=== PATIENT | male | born 1985 | race Caucasian/White ===

== ENCOUNTER 2020-05-15 21:39 | Inpatient (IN) | payer OTHER ==
[2020-05-15 22:00] LABS: Basophils # (A) 0.1 k/uL (0-0.2); Basophils % (A) 1 %; Eosinophils # (A) 0.2 k/uL (0-0.7); Eosinophils % (A) 2 %; HGB 13.5 gm/dL (13.0-17.5); Lymphocytes # (A) 3.4 k/uL (1.0-4.8); Lymphocytes % (A) 41 %; MCHC 32.2 g/dL (31.0-37.0); MCV 93.1 fL (80.0-100.0); Mean Platelet Volume 9.8; Monocytes # (A) 0.4 k/uL (0-1.0); Monocytes % (A) 5 %; Neutrophils # (A) 3.9 k/uL (1.3-7.7); Neutrophils % (A) 48 %; Platelet Count 167 k/uL (150-450); RBC 4.51 m/uL (4.30-5.90); RDW 12.6 % (11.5-15.5); WBC 8.2 k/uL (3.8-10.6)
--- NOTE | 2020-05-15 22:08 | ED ---
General Adult HPI - General Chief complaint: Seizure Stated complaint: Seizure Time Seen by Provider: 05/15/20 21:45 Source: patient, EMS Mode of arrival: EMS Limitations: no limitations - History of Present Illness Initial comments: Dictation was produced using Embedster dictation software. please excuse any grammatical, word or spelling errors. This patient was cared for during a federal and state declared state of emergency secondary to Covid 19 Chief Complaint: 34-year-old male presents after syncope. History of Present Illness: 34-year-old male is brought in by EMS for syncopal versus seizure. Patient states he was washing the dishes when all of a sudden the Nexium remembers was laying down the floor. He is brought here by EMS. Patient does not have a history of syncope. He denies any medical problems. He does smoke tobacco. Patient takes Kratom powder to help him with his cardio and to help with his depression. Patient's been taking this substance for approximately 8 months. He has not increased his intake recently. The ROS documented in this emergency department record has been reviewed and confirmed by me. Those systems with pertinent positive or negative responses have been documented in the HPI. All other systems are other negative and/or noncontributory. PHYSICAL EXAM: General Impression: Alert and oriented x3, not in acute distress HEENT: Normocephalic atraumatic, extra-ocular movements intact, pupils equal and reactive to light bilaterally, mucous membranes moist, no lateral tongue avuls ions Cardiovascular: Heart regular rate and rhythm Chest: Able to complete full sentences, no retractions, no tachypnea, mild regurgitation murmur Abdomen: abdomen soft, non-tender, non-distended, no organomegaly Musculoskeletal: Pulses present and equal in all extremities, no peripheral edema Motor: no focal deficits noted Neurological: CN II-XII grossly intact, no focal motor or sensory deficits noted Skin: Intact with no visualized rashes Psych: Normal affect and mood ED course: 34-year-old male presents after syncope. Signs upon arrival are within acceptable limits. EKG did show a QRS widening in a 34-year-old male with no medical problems. Case is discussed with Tahmina at [email or web address] [facility] given patient's abnormal EKG. She states that there are case reports of myocardial conduction effects from chronic Kratom use. Poison control has no specific recommendations however they do suggests perhaps trying sodium bicarbonate to see if it affects the QRS interval. Boyd arrives at bedside. She states she witnessed the whole event. He was found to be convulsing with extensor posturing and foaming at the mouth for approximately 2 minutes. 2 minutes he stopped. For following 2 minutes patient was sonorous. That he immediately woke up. Repeat EKG was performed after multiple amps of bicarbonate. His QRS narrowed to 136 however QTC is now 508. There is some concern that perhaps patient's syncopal episode was secondary to cardiac arrhythmia however clinically based on girlfriend's description of the event seems like seizure. Given that there is concern of cardiac dysrhythmia discussed patient case with the sap senior developer Dr. Trejo, recommend that patient is not ICU player at this time and to have him admitted to telemetry on non-titrated sodium bicarb infusion. Case is discussed with Stefanie Chi who is accepting patients care on behalf of [facility]. Case was discu ssed with Dr. Key who is aware of patient. He has no recommendations. Patient is agreeable with admission. EKG interpretation: Ventricular rate 83, normal sinus rhythm, CO interval 136, QS 140, QTc 484. No CO prolongation, no QTC prolongation, no ST or T-wave changes noted. There is unusual QRS widening and otherwise healthy male with no history of cardiac problems - Related Data Allergies Allergy/AdvReac Type Severity Reaction Status Date / Time No Known Allergies Allergy Verified 05/15/20 22:24 Review of Systems ROS Statement: Those systems with pertinent positive or pertinent negative responses have been documented in the HPI. ROS Other: All systems not noted in ROS Statement are negative. Past Medical History Past Medical History: No Reported History History of Any Multi-Drug Resistant Organisms: None Reported Past Surgical History: No Surgical Hx Reported Past Psychological History: No Psychological Hx Reported Smoking Status: Current every day smoker Past Alcohol Use History: Occasional Past Drug Use History: None Reported General Exam Limitations: no limitations Course Vital Signs 05/15/20 05/15/20 21:42 22:34 Temperature 98.1 F Pulse Rate 80 72 Respiratory 18 18 Rate Blood Pressure 155/83 132/80 O2 Sat by Pulse 99 98 Oximetry Medical Decision Making - Lab Data Result diagrams: 05/15/20 21:43 05/15/20 21:43 Lab Results 05/15/20 05/15/20 05/15/20 Range/Units 21:43 21:43 22:24 WBC 8.2 (3.8-10.6) k/uL RBC 4.51 (4.30-5.90) m/uL Hgb 13.5 (13.0-17.5) gm/dL Hct 42.0 (39.0-53.0) % MCV 93.1 (80.0-100.0) fL MCH 30.0 (25.0-35.0) pg MCHC 32.2 (31.0-37.0) g/dL RDW 12.6 (11.5-15.5) % Plt Count 167 (150-450) k/uL Neutrophils % 48 % Lymphocytes % 41 % Monocytes % 5 % Eosinophils % 2 % Basophils % 1 % Neutrophils # 3.9 (1.3-7.7) k/uL Lymphocytes # 3.4 (1.0-4.8) k/uL Monocytes # 0.4 (0-1.0) k/uL Eosinophils # 0.2 (0-0.7) k/uL Basophils # 0.1 (0-0.2) k/uL Sodium 138 (137-145) mmol/L Potassium 3.6 (3.5-5.1) mmol/L Chloride 100 (98-107) mmol/L Carbon Dioxide 27 (22-30) mmol/L Anion Gap 11 mmol/L BUN 19 (9-20) mg/dL Creatinine 0.81 (0.66-1.25) mg/dL Est GFR (CKD-EPI)AfAm >90 (>60 ml/min/1.73 sqM) Est GFR (CKD-EPI)NonAf >90 (>60 ml/min/1.73 sqM) Glucose 114 H (74-99) mg/dL Calcium 8.2 L (8.4-10.2) mg/dL Total Bilirubin 0.3 (0.2-1.3) mg/dL AST 29 (17-59) U/L ALT 16 (4-49) U/L Alkaline Phosphatase 57 (38-126) U/L Total Protein 6.5 (6.3-8.2) g/dL Albumin 4.2 (3.5-5.0) g/dL Urine Color Yellow Urine Appearance Clear (Clear) Urine pH 5.5 (5.0-8.0) Ur Specific [place] 1.025 (1.001-1.035) Urine Protein 1+ H (Negative) Urine Glucose (UA) Negative (Negative) Urine Ketones Negative (Negative) Urine Blood Negative (Negative) Urine Nitrite Negative (Negative) Urine Bilirubin Negative (Negative) Urine Urobilinogen <2.0 (<2.0) mg/dL Ur Leukocyte Esterase Trace H (Negative) Urine RBC 1 (0-5) /hpf Urine WBC <1 (0-5) /hpf Hyaline Casts 11 H (0-2) /lpf Urine Mucus Rare H (None) /hpf Urine Sperm Occasional H (None) /hpf Urine Opiates Screen (NotDetected) Ur Oxycodone Screen (NotDetected) Urine Methadone Screen (NotDetected) Ur Propoxyphene Screen (NotDetected) Ur Barbiturates Screen (NotDetected) U Tricyclic Antidepress (NotDetected) Ur Phencyclidine Scrn (NotDetected) Ur Amphetamines Screen (NotDetected) U Methamphetamines Scrn (NotDetected) U Benzodiazepines Scrn (NotDetected) Urine Cocaine Screen (NotDetected) U Marijuana (THC) Screen (NotDetected) Serum Alcohol <10 mg/dL 05/15/20 Range/Units 22:27 WBC (3.8-10.6) k/uL RBC (4.30-5.90) m/uL Hgb (13.0-17.5) gm/dL Hct (39.0-53.0) % MCV (80.0-100.0) fL MCH (25.0-35.0) pg MCHC (31.0-37.0) g/dL RDW (11.5-15.5) % Plt Count (150-450) k/uL Neutrophils % % Lymphocytes % % Monocytes % % Eosinophils % % Basophils % % Neutrophils # (1.3-7.7) k/uL Lymphocytes # (1.0-4.8) k/uL Monocytes # (0-1.0) k/uL Eosinophils # (0-0.7) k/uL Basophils # (0-0.2) k/uL Sodium (137-145) mmol/L Potassium (3.5-5.1) mmol/L Chloride (98-107) mmol/L Carbon Dioxide (22-30) mmol/L Anion Gap mmol/L BUN (9-20) mg/dL Creatinine (0.66-1.25) mg/dL Est GFR (CKD-EPI)AfAm (>60 ml/min/1.73 sqM) Est GFR (CKD-EPI)NonAf (>60 ml/min/1.73 sqM) Glucose (74-99) mg/dL Calcium (8.4-10.2) mg/dL Total Bilirubin (0.2-1.3) mg/dL AST (17-59) U/L ALT (4-49) U/L Alkaline Phosphatase (38-126) U/L Total Protein (6.3-8.2) g/dL Albumin (3.5-5.0) g/dL Urine Color Urine Appearance (Clear) Urine pH (5.0-8.0) Ur Specific [place] (1.001-1.035) Urine Protein (Negative) Urine Glucose (UA) (Negative) Urine Ketones (Negative) Urine Blood (Negative) Urine Nitrite (Negative) Urine Bilirubin (Negative) Urine Urobilinogen (<2.0) mg/dL Ur Leukocyte Esterase (Negative) Urine RBC (0-5) /hpf Urine WBC (0-5) /hpf Hyaline Casts (0-2) /lpf Urine Mucus (None) /hpf Urine Sperm (None) /hpf Urine Opiates Screen Not Detected (NotDetected) Ur Oxycodone Screen Not Detected (NotDetected) Urine Methadone Screen Not Detected (NotDetected) Ur Propoxyphene Screen Not Detected (NotDetected) Ur Barbiturates Screen Not Detected (NotDetected) U Tricyclic Antidepress Not Detected (NotDetected) Ur Phencyclidine Scrn Not Detected (NotDetected) Ur Amphetamines Screen Not Detected (NotDetected) U Methamphetamines Scrn Not Detected (NotDetected) U Benzodiazepines Scrn Not Detected (NotDetected) Urine Cocaine Screen Not Detected (NotDetected) U Marijuana (THC) Screen Not Detected (NotDetected) Serum Alcohol mg/dL Critical Care Time Critical Care Time: Yes Total Critical Care Time: 33 Disposition Clinical Impression: Syncope Disposition: ADMITTED IP TO THIS [facility] Condition: Fair Referrals: None,Stated [Primary Care Provider] - 1-2 days Decision Time: 23:02
[2020-05-15 22:23] LABS: ALT 16 U/L (4-49); AST 29 U/L (17-59); African American GFR (CKD) >90 (>60 ml/min/1.73 sqM); Albumin 4.2 g/dL (3.5-5.0); Alcohol <10 mg/dL; Alkaline Phosphatase 57 U/L (38-126); Anion Gap 11 mmol/L; Blood Urea Nitrogen 19 mg/dL (9-20); Calcium 8.2 mg/dL (8.4-10.2); Carbon Dioxide 27 mmol/L (22-30); Chloride 100 mmol/L (98-107); Glucose 114 mg/dL (74-99); Non-African American GFR(CKD) >90 (>60 ml/min/1.73 sqM); Potassium 3.6 mmol/L (3.5-5.1); Sodium 138 mmol/L (137-145); Total Bilirubin 0.3 mg/dL (0.2-1.3); Total Protein 6.5 g/dL (6.3-8.2)
[2020-05-15] MEDS ORDERED: SODIUM BICARB 8.4% 50 ML SYR (1 MEQ/ML) IV STA (22:23)
[2020-05-15] MEDS ORDERED: CALCIUM GLUCONATE 1 GM in SODIUM CHLORIDE 0.9% 100 ML IVPB ONE (22:30)
[2020-05-15 22:36] LABS: Appearance,Urine Clear (Clear); Bilirubin,Urine Negative (Negative); Blood,Urine Negative (Negative); Color,Urine Yellow; Glucose,Urine (UA) Negative (Negative); Hyaline Casts,Urine 11 /lpf (0-2); Ketones,Urine Negative (Negative); Leukocyte Esterase,Urine Trace (Negative); Mucus,Urine Rare /hpf; Nitrite,Urine Negative (Negative); PH, Urine 5.5 (5.0-8.0); Protein,Urine 1+ (Negative); RBC,Urine 1 /hpf (0-5); Specific Gravity,Urine 1.025 (1.001-1.035); Sperm,Urine Occasional /hpf; Urobilinogen,Urine <2.0 mg/dL (<2.0); WBC,Urine <1 /hpf (0-5)
[2020-05-15 22:53] LABS: Amphetamine Screen,Urine Not Detected (NotDetected); Barbiturate Screen,Urine Not Detected (NotDetected); Benzodiazepines Screen,Urine Not Detected (NotDetected); Cocaine Screen,Urine Not Detected (NotDetected); Methadone Screen, Urine Not Detected (NotDetected); Opiate Screen,Urine Not Detected (NotDetected); Oxycodone Screen, Urine Not Detected (NotDetected); Phencyclidine Screen,Urine Not Detected (NotDetected); Tricyclic Antidepressant,Urine Not Detected (NotDetected); Urn Cannabinoid Scrn Not Detected (NotDetected)
[2020-05-15] MEDS ORDERED: NALOXONE 0.4 MG/ML 1 ML VIAL IV PRN (22:55)
[2020-05-15] MEDS ORDERED: SODIUM CHLORIDE 0.9% 1,000 ML IV SCH (23:00)
[2020-05-15] MEDS ORDERED: LORazepam 2 MG/ML INJ IV PRN (23:02)
[2020-05-15] MEDS: DEXTROSE 5% IN WATER 1,000 ML with SODIUM BICARB (1 MEQ/ML) 150 ML IV SCH (23:25)
[2020-05-16] MEDS: DEXTROSE 5% IN WATER 1,000 ML with SODIUM BICARB (1 MEQ/ML) 150 ML IV SCH (05:17)
[2020-05-16 08:38] VITALS: RESP 18
--- NOTE | 2020-05-16 09:30 | P.CRDCN ---
History of Present Illness Consult date: 05/16/20 History of present illness: CHIEF COMPLAINT: Syncope versus seizure HISTORY OF PRESENT ILLNESS: 34-year-old male with a history of nicotine dependence who presented to the emergency room secondary to possible seizure. Patient does not follow up outpatient with a surgical instrument mechanic. Patient states he was feeling well yesterday except for having a little bit of shakiness. He ate dinner with his family and afterwards started washing dishes. He states he was feeling fine and then all of a sudden woke up on the floor. The patient states his girlfriend said he was shaking and having jerking motions similar to a seizure. Patient denies having a seizure history. He denies chest pain or pressure. Denies shortness of breath. Denies dizziness or lightheadedness. Patient reports using Kratom powder for the last 8 months and she states it is supposed to be beneficial for cardiac health and depression. Poison control was contacted while the patient was in the emergency room and he was started on a bicarb drip. Patient denies any known medical conditions. He is a current smoker. He reports occasional alcohol use. He denies surgical history. Patient reports family history of heart disease on his fathers side and also diabetes. DIAGNOSTICS: EKG reveals sinus rhythm Laboratory data: WBC 8.2. Hemoglobin 13.5. Platelet count 167. Sodium 138. Potassium 3.6. BUN 19. Creatinine 0.81. Magnesium 1.6. Current home cardiac medications include: none REVIEW OF SYSTEMS: CONSTITUTIONAL: Denies fever or chills. HEENT: Denies blurred vision, vision changes, or eye pain. Denies hemoptysis CARDIOVASCULAR: Denies chest pain, orthopnea, PND or palpitations RESPIRATORY: No shortness of breath. GASTROINTESTINAL: Denies abdominal pain. Denies nausea or vomiting. HEMATOLOGIC: Denies bleeding disorders. GENITOURINARY: Denies any blood in urine. SKIN: Denies pruitis. Denies rash. PHYSICAL EXAM: VITAL SIGNS: Reviewed. GENERAL: Well-developed in no acute distress. HEENT: Head is normocephalic. Pupils are equal, round. Sclerae anicteric. Mucous membranes of the mouth are moist. Neck supple. No JVD or thyromegaly LUNGS: Respirations even and unlabored. Lungs essentially clear to auscultation bilaterally. HEART: Regular rate and rhythm. S1 and S2 heard. ABDOMEN: Soft. Nondistended. Nontender. EXTREMITIES: Normal range of motion. No clubbing or cyanosis. Peripheral pulses intact. No lower extremity edema NEUROLOGIC: Awake and alert. Oriented x 3. ASSESSMENT: Possible syncope versus seizure, rule out cardiac etiology PLAN: Continue telemetry monitoring to assess for any cardiac arrhythmias Obtain 2-D echo to assess cardiac structure and function Obtain troponin level Check orthostatic blood pressures Neurology following. Await recommendations Further recommendations pending patient's course Nurse practitioner note has been reviewed by physician. Signing provider agrees with the documented findings, assessment, and plan of care. Past Medical History Past Medical History: No Reported History History of Any Multi-Drug Resistant Organisms: None Reported Past Surgical History: No Surgical Hx Reported Past Psychological History: No Psychological Hx Reported Smoking Status: Current every day smoker Past Alcohol Use History: Occasional Past Drug Use History: None Reported - Past Family History Father Family Medical History: Diabetes Mellitus Additional Family Medical History / Comment(s): pt. states dad has heart issues Medications and Allergies Home Medications Medication Instructions Recorded Confirmed Type Kratom Supplement 1 cap PO DAILY 05/16/20 05/16/20 History Multivitamins, Thera [Multivitamin 1 tab PO DAILY 05/16/20 05/16/20 History (formulary)] [place]-3 Fatty Acids/Fish Oil [Fish 1 cap PO DAILY 05/16/20 05/16/20 History Oil 1,000 mg Softgel] Allergies Allergy/AdvReac Type Severity Reaction Status Date / Time No Known Allergies Allergy Verified 05/16/20 08:10 Physical Exam Vitals: Vital Signs Temp Pulse Pulse Resp BP BP Pulse Ox 05/16/20 03:37 98.6 F 62 16 121/69 98 05/16/20 00:00 98.8 F 66 18 126/73 97 05/15/20 22:34 72 18 132/80 98 05/15/20 21:42 98.1 F 80 18 155/83 99 Intake and Output 05/15/20 05/16/20 05/16/20 22:59 06:59 14:59 Intake Total 240 Balance 240 Intake: Oral 240 Other: # Voids 2 Weight 79.379 kg 77.3 kg Results 05/15/20 21:43 05/15/20 21:43 Cardiac Enzymes 05/15/20 Range/Units 21:43 AST 29 (17-59) U/L CBC 05/15/20 Range/Units 21:43 WBC 8.2 (3.8-10.6) k/uL RBC 4.51 (4.30-5.90) m/uL Hgb 13.5 (13.0-17.5) gm/dL Hct 42.0 (39.0-53.0) % Plt Count 167 (150-450) k/uL Comprehensive Metabolic Panel 05/15/20 Range/Units 21:43 Sodium 138 (137-145) mmol/L Potassium 3.6 (3.5-5.1) mmol/L Chloride 100 (98-107) mmol/L Carbon Dioxide 27 (22-30) mmol/L BUN 19 (9-20) mg/dL Creatinine 0.81 (0.66-1.25) mg/dL Glucose 114 H (74-99) mg/dL Calcium 8.2 L (8.4-10.2) mg/dL AST 29 (17-59) U/L ALT 16 (4-49) U/L Alkaline Phosphatase 57 (38-126) U/L Total Protein 6.5 (6.3-8.2) g/dL Albumin 4.2 (3.5-5.0) g/dL Current Medications Generic Name Dose Route Start Last Admin Trade Name Freq PRN Reason Stop Dose Admin Sodium Bicarbonate 150 ml/ 1,150 mls @ 150 mls/hr 05/15/20 23:00 05/16/20 05:17 Dextrose/Water IV 150 mls/hr .[id number] JOEY Administration Sodium Chloride 1,000 mls @ 20 mls/hr 05/15/20 23:00 05/16/20 00:23 Saline 0.9% IV Not Given .Q24H JOEY Lorazepam 2 mg 05/15/20 23:02 Ativan IV ONCE PRN Seizures Naloxone HCl 0.2 mg 05/15/20 22:55 Narcan IV Q2M PRN Opioid Reversal Intake and Output 05/15/20 05/16/20 05/16/20 22:59 06:59 14:59 Intake Total 240 Balance 240 Intake: Oral 240 Other: # Voids 2 Weight 79.379 kg 77.3 kg 05/15/20 21:43 05/15/20 21:43
--- NOTE | 2020-05-16 10:36 | CT ---
EXAMINATION TYPE: CT brain wo con DATE OF EXAM: 05/16/2020 COMPARISON: None HISTORY: 34-year-old male Seizure TECHNIQUE: Examination was done in axial plane without intravenous contrast. Coronal and sagittal r econstructions performed. CT DLP: 1095.4 mGycm Automated exposure control for dose reduction was used. FINDINGS: There is no evidence of acute intracranial hemorrhage, acute ischemic changes, mass, mass-effect, or extra-axial fluid collection. There is no effacement of cerebral sulci or basal subarachnoid cister ns. There is no hydrocephalus. There is no midline shift. Hines-white matter distinction is preserv ed. Dense cerumen in the bilateral external auditory canals. Scattered trace mucosal thickening ethmoid a ir cells. Orbits and globes are intact. IMPRESSION: No acute intracranial abnormality seen.
[2020-05-16 10:47] LABS: African American GFR (CKD) >90 (>60 ml/min/1.73 sqM); Anion Gap 4 mmol/L; Blood Urea Nitrogen 13 mg/dL (9-20); Calcium 8.2 mg/dL (8.4-10.2); Carbon Dioxide 32 mmol/L (22-30); Chloride 102 mmol/L (98-107); Glucose 108 mg/dL (74-99); Non-African American GFR(CKD) >90 (>60 ml/min/1.73 sqM); Potassium 3.6 mmol/L (3.5-5.1); Sodium 138 mmol/L (137-145)
[2020-05-16 10:58] LABS: VBG PH 7.48 (7.31-7.41)
--- NOTE | 2020-05-16 11:58 | ECHOF ---
Referral Reason:syncope, abnormal EKG MEASUREMENTS -------- HEIGHT: 188.0 cm WEIGHT: 77.1 kg BP: 121/69 RVIDd: 3.9 cm (< 3.3) IVSd: 1.3 cm (0.6 - 1.1) LVIDd: 4.9 cm (3.9 - 5.3) LVPWd: 1.4 cm (0.6 - 1.1) IVSs: 1.5 cm LVIDs: 3.1 cm LVPWs: 1.7 cm LAESV Index (A-L): 25.53 ml/m Ao Diam: 3.2 cm (2.0 - 3.7) AV Cusp: 2.6 cm (1.5 - 2.6) MV EXCURSION: 20.043 mm (> 18.000) MV EF SLOPE: 51 mm/s (70 - 150) EPSS: 0.2 cm MV E Shaheen: 1.04 m/s MV DecT: 259 ms MV A Shaheen: 0.85 m/s MV E/A Ratio: 1.23 RAP: 5.00 mmHg RVSP: 27.27 mmHg FINDINGS -------- This was a technically adequate study. The left ventricular size is normal. There is mild concentric left ventricular hypertrophy. Overa ll left ventricular systolic function is normal with, an EF between 55 - 60 %. The diastolic fillin g pattern is normal for the age of the patient 9.02. The right ventricle is mildly enlarged. Normal LA size by volume 22+/-6 ml/m2. The right atrial size is normal. Interatrial and interventricular septum intact. The aortic valve is trileaflet and appears structurally normal. There is no evidence of aortic regu rgitation. There is no evidence of aortic stenosis. No mitral regurgitation. Mild tricuspid regurgitation present. There is no evidence of pulmonary hypertension. The right v entricular systolic pressure, as measured by Doppler, is 27.27mmHg. Trace/mild (physiologic) pulmonic regurgitation. The aortic root size is normal. Normal inferior vena cava with normal inspiratory collapse consistent with estimated right atrial pre ssure of 5 mmHg. There is no pericardial effusion. CONCLUSIONS -------- 1. The left ventricular size is normal. 2. There is mild concentric left ventricular hypertrophy. 3. Overall left ventricular systolic function is normal with, an EF between 55 - 60 %. 4. The diastolic filling pattern is normal for the age of the patient 9.02 5. Mild tricuspid regurgitation present. 6. Trace/mild (physiologic) pulmonic regurgitation. COMPOUND WORKER: Kinza Burgos RDCS
[2020-05-16 13:01] VITALS: BP 119/72; PULSE 46; TEMP 96.9
--- NOTE | 2020-05-17 00:01 | P.HPIM ---
History of Present Illness Please consider this note as combined H&P and discharge summary Hospital course This is a pleasant 34 years old male with no significant past medical history. Presents because of syncope versus seizure. Patient was having to do with family and girlfriend last night and a family left he wanted to do dishes when he started having shakiness like as if he has cold, shakiness was all over his b sophia and felt sick for about 10-15 minutes, and he was telling his girlfriend and the next thing he finds himself in the ambulance , he could not remember what happens in between. And information were taken with the help of the his girlfriend and ID note, apparently patient fell on the floor and he had what looks like a seizure per girlfriend description when he has shakiness all over his body with mild proximal but no urine or bowel incontinence no tongue biting after it lasted for about 2 minutes per girlfriend and ED documentation, patient was confused and still he woke up in the embolus they were asking him about the time of place and person. Patient when he fell he hit his head on the back, currently he complains from mild neck pain, but no headache, is fully awake and oriented, no weakness or numbness in extremities, no blurred vision or slurred speech. No tingling sensation. No chest pain or dyspnea. No abdominal pain, no nausea vomiting, no fever. Patient has been using Kratom powder [id number] to help him to exercise and to help with his anxiety, he denies depression to me, he denies suicidal or homicidal ideation and it looks a pleasant. He took Kratom the day he had a seizure. Also patient smokes about half pack per day and his consult was to quit. Also he drinks about 2-3 ounces of bourbon whiskey for about 2-4 days per week, he was drinking the last couple days before he had C seizure. He does not have a PCP and he has no medication Vitals are stable. However he was bradycardic and this morning at 50. Labs are unremarkable including CBC, INR, BMP, liver enzymes, troponin, urine analysis and urine drug screen and serum alcohol level was less than 10. First EKG showing normal sinus rhythm at 83 with nonspecific intraventricular block and QTC 484, while second EKG showing sinus rhythm with first-degree AV block at 78 with nonspecific intraventricular block and WA interval of 218 ms and QTC at 508 Postoperative control was contacted by ED team and upon their recommendation was given calcium gluconate and sodium bicarb. Also patient was placed on Ativan as needed and given sodium bicarb drip. [employer] Consultant and neurologist for consulted from 80 Review of systems CONSTITUTIONAL: No fever, no malaise, no fatigue. HEENT: No recent visual problems or hearing problems. Denied any sore throat. CARDIOVASCULAR: No orthopnea, PND, no palpitations, no syncope. PULMONARY: No shortness of breath, no cough, no hemoptysis. GASTROINTESTINAL: No diarrhea, no nausea, no vomiting, no abdominal pain. Normoactive bowel sounds. NEUROLOGICAL: No headaches, no weakness, no numbness. HEMATOLOGICAL: Denies any bleeding or petechiae. GENITOURINARY: Denies any burning micturition, frequency, or urgency. MUSCULOSKELETAL/RHEUMATOLOGICAL: Denies any joint pain, swelling, or any muscle pain. ENDOCRINE: Denies any polyuria or polydipsia. Physical exam GENERAL: The patient is alert and oriented x3, not in any acute distress. Well developed, well nourished. HEENT: Pupils are round and equally reacting to light. EOMI. No scleral icterus. No conjunctival pallor. Normocephalic, atraumatic. No pharyngeal erythema. No thyromegaly. CARDIOVASCULAR: S1 and S2 present. No murmurs, rubs, or gallops. PULMONARY: Chest is clear to auscultation, no wheezing or crackles. ABDOMEN: Soft, nontender, nondistended, normoactive bowel sounds. No palpable organomegaly. MUSCULOSKELETAL: No joint swelling or deformity. EXTREMITIES: No cyanosis, clubbing, or pedal edema. NEUROLOGICAL: Gross neurological examination did not reveal any focal deficits. Cranial nerves are grossly intact. Strength is 5/5 in all extremities and sensation intact. Meningeal signs are absent SKIN: No rashes. no petechiae. Diagnoses Syncope, versus seizure intraventricular block with prolonged QTc, with episodic bradycardia Nicotine dependence using Kratom for energy and mood plan This is a pleasant 34 years old male who presents because of syncope versus seizure. and intraventricular conduction delay. Cardiology consult. Continue with telemetry. Check echocardiogram. We'll do a CT of the brain without contrast. Neurologist has been consulted from emergency room, however there is no neurologist available at this hospital. Patient discussed the plan and the need to be transferred to a tertiary care center for neurological evaluation and he agrees . Also I discussed the case with Dr. White the director of provider relations and he agrees to transfer the patient to report for neurological evaluation. Patient felt its less likely his seizure is due to cardiac arrhythmia with this degree of mild QT prolongation. CT of the head is negative for acute process Poison control was contacted and recommended to stop the bicarb drip Patient is a stable for transfer in guarded prognosis. Patient is transferred to [facility] and he Accepted for transfer Labs and medication were reviewed.. Continue same treatment. Continue with symptomatic treatment. Resume home medication. Monitor lytes and vitals. DVT and GI prophylaxis. Further recommendations of the clinical course of the patient DVT prophylaxis: Subcutaneous heparin GI Prophylaxis: Pepcid Prognosis is guarded Review of Systems CONSTITUTIONAL: No fever, no malaise, no fatigue. HEENT: No recent visual problems or hearing problems. Denied any sore throat. CARDIOVASCULAR: No orthopnea, PND, no palpitations, no syncope. PULMONARY: No shortness of breath, no cough, no hemoptysis. GASTROINTESTINAL: No diarrhea, no nausea, no vomiting, no abdominal pain. Normoactive bowel sounds. NEUROLOGICAL: No headaches, no weakness, no numbness. HEMATOLOGICAL: Denies any bleeding or petechiae. GENITOURINARY: Denies any burning micturition, frequency, or urgency. MUSCULOSKELETAL/RHEUMATOLOGICAL: Denies any joint pain, swelling, or any muscle pain. ENDOCRINE: Denies any polyuria or polydipsia. Past Medical History Past Medical History: No Reported History History of Any Multi-Drug Resistant Organisms: None Reported Past Surgical History: No Surgical Hx Reported Past Psychological History: No Psychological Hx Reported Smoking Status: Current every day smoker Past Alcohol Use History: Occasional Past Drug Use History: None Reported - Past Family History Father Family Medical History: Diabetes Mellitus Additional Family Medical History / Comment(s): pt. states dad has heart issues Medications and Allergies Home Medications Medication Instructions Recorded Confirmed Type Kratom Supplement 1 cap PO DAILY 05/16/20 05/16/20 History Multivitamins, Thera [Multivitamin 1 tab PO DAILY 05/16/20 05/16/20 History (formulary)] Gays-3 Fatty Acids/Fish Oil [Fish 1 cap PO DAILY 05/16/20 05/16/20 History Oil 1,000 mg Softgel] Allergies Allergy/AdvReac Type Severity Reaction Status Date / Time No Known Allergies Allergy Verified 05/16/20 08:10 Physical Exam Vitals: Vital Signs Temp Pulse Pulse Resp BP BP Pulse Ox 05/16/20 03:37 98.6 F 62 16 121/69 98 05/16/20 00:00 98.8 F 66 18 126/73 97 05/15/20 22:34 72 18 132/80 98 05/15/20 21:42 98.1 F 80 18 155/83 99 Intake and Output 05/15/20 05/16/20 05/16/20 22:59 06:59 14:59 Intake Total 240 Balance 240 Intake: Oral 240 Other: # Voids 2 Weight 79.379 kg 77.3 kg GENERAL: The patient is alert and oriented x3, not in any acute distress. Well developed, well nourished. HEENT: Pupils are round and equally reacting to light. EOMI. No scleral icterus. No conjunctival pallor. Normocephalic, atraumatic. No pharyngeal erythema. No thyromegaly. CARDIOVASCULAR: S1 and S2 present. No murmurs, rubs, or gallops. PULMONARY: Chest is clear to auscultation, no wheezing or crackles. ABDOMEN: Soft, nontender, nondistended, normoactive bowel sounds. No palpable organomegaly. MUSCULOSKELETAL: No joint swelling or deformity. EXTREMITIES: No cyanosis, clubbing, or pedal edema. NEUROLOGICAL: Gross neurological examination did not reveal any focal deficits. SKIN: No rashes. No petechiae Results CBC & Chem 7: 05/15/20 21:43 05/16/20 10:18 Labs: Abnormal Lab Results - Last 24 Hours (Table) 05/15/20 05/15/20 Range/Units 21:43 22:24 Glucose 114 H (74-99) mg/dL Calcium 8.2 L (8.4-10.2) mg/dL Urine Protein 1+ H (Negative) Ur Leukocyte Esterase Trace H (Negative) Hyaline Casts 11 H (0-2) /lpf Urine Mucus Rare H (None) /hpf Urine Sperm Occasional H (None) /hpf Thrombosis Risk Factor Assmnt - Choose All That Apply Any of the Below Risk Factors Present?: No Other Risk Factors: No Thrombosis Risk Factor Assessment Level: Very Low Risk
== END 2020-05-16 15:07 | disposition short-term general hospital (02) | DRG 101 ==
LOC: EC 21:39 → 3SCARD 22:55
PROVIDERS: ADMIT Hospitalist; ATTEND Hospitalist
DX: R56.9 Unspecified convulsions (principal); R55 Syncope and collapse; I45.81 Long QT syndrome; I45.4 Nonspecific intraventricular block; I44.0 Atrioventricular block, first degree; F32.9 Major depressive disorder, single episode, unspecified; M54.2 Cervicalgia; R00.1 Bradycardia, unspecified; F41.9 Anxiety disorder, unspecified; F17.210 Nicotine dependence, cigarettes, uncomplicated; Z71.6 Tobacco abuse counseling; W18.30XA Fall on same level, unspecified, initial encounter; Z83.3 Family history of diabetes mellitus; Z82.49 Family history of ischemic heart disease and other diseases of the circulatory system; Z79.899 Other long term (current) drug therapy
CPT/HCPCS: 36415; 70450; 80048; 80053; 80306; 80320; 81001; 81003; 82803; 83735; 84484; 85025; 93005; 93306; 96374; 99291